=== PATIENT | female | born 1930 | race Caucasian/White ===

== ENCOUNTER 2018-06-29 07:24 | Emergency (ER) | payer OTHER ==
[~2018-06-29] VITALS: Ht 154.9 cm; Wt 65.8 kg
[~2018-06-29 07:24] MED LIST: ADVAIR 250-501 EACH INH; ALENDRONATE SOD70 M2 PO; CALTRATE 600 +1 EACH PO; CIPRO500 M1 PO; COMBIGAN EYE DRO5 ML; COZAAR25 M1 PO; FLAGYL500 MG PO; FLUOROMETHOLONE5 ML OD; LISINOPRIL20 M1 PO; METAMUCIL660 GM PO; PREDNISONE1 MG PO; VITAMIN D2000 UNI1 PO
--- NOTE | 2018-06-29 08:19 | RADIOLOGY REPORT ---
EXAMINATION: XR KNEE, RIGHT CLINICAL INFORMATION: Pain swelling evaluate for fracture. COMPARISON: Prior x-ray July 2017 TECHNIQUE: Four views of the right knee. FINDINGS: There is slight soft tissue prominence anterior to the patellar tendon. There is no fracture. There is no joint effusion. There is no degenerative change. The bones are normal. IMPRESSION: Slightly prominent soft tissue prominence anterior to the patellar tendon may reflect a soft tissue contusion although overall nonspecific.
--- NOTE | 2018-06-29 08:24 | ED MVC/FALL/TRAUMA COMPLAINT ---
History of Present Illness General Chief Complaint: Laceration Procedure Stated Complaint: SLIPPED & FELL, LAC TO L LEG Source: patient Exam Limitations: no limitations Allergies Coded Allergies: Penicillins (Severe, RASH AND THROAT SWELLING 06/29/18) amlodipine (UNKNOWN PER PT CANT REMEMBER 06/29/18) Reconcile Medications Alendronate Sodium 70 MG TABLET 1 TAB PO QSUN BONES (Reported) in the morning, at least 30 minutes before the first food, beverage, or medication of the day Calcium Carbonate/Vitamin D3 (Caltrate 600 + D Tablet) (Unknown Strength) TABLET (Unknown Dose) PO DAILY SUPPLEMENT (Reported) Cholecalciferol (Vitamin D3) (Vitamin D) 2,000 UNIT TABLET 1 TAB PO DAILY SUPPLEMENT (Reported) Fluorometholone 0.1 % DROPS.SUSP 1 DROP OD QPM RIGHT EYE (Reported) Losartan Potassium (Cozaar) 25 MG TABLET 1 TAB PO DAILY BP (Reported) Prednisone 1 MG TABLET 2 MG PO DAILY STEROID (Reported) Psyllium Husk (Metamucil) (Unknown Strength) POWDER (Unknown Dose) PO DAILY GI (Reported) Triage Note: PT TO ED FOR C/C OF SKIN TEAR TO L CARBONE AREA S/P MECHANICAL TRIP AND FALL OVER DOG TOY. NO ACTIVE BLEEDING IN TRIAGE. -BLOOD THINNERS. ALSO COMPLAINS OF R KNEE PAIN WITH SOME MINOR SWELLING NOTED. AMBULATORY IN TRIAGE. Triage Nurses Notes Reviewed? yes Onset: Abrupt Duration: day(s):, constant, continues in ED Timing: single episode today Severity: mild, moderate Severity Numbers: 5 Injuries/Fall Location: lower extremity Method of Injury: fall Loss of Consciousness: no loss of consciousness No Modifying Factors: none LMP (ages 10-50): post menopausal HPI: 87-year-old female history of hypertension, PMR, asthma, GERD presents for evaluation after a fall. Patient reports she tripped over a dog toy hitting her right knee and and left carbone on the ground. She suffered a small skin tear to the left carbone. She reports pain bruising and swelling to the right knee. There is no head strike or loss of consciousness no blood thinners. Patient has been able to walk. She denies any other injuries. (Maninder LINCOLN,Delvis) Vital Signs & Intake/Output Vital Signs & Intake/Output ED Intake and Output 06/30 0000 06/29 1200 Intake Total Output Total Balance Patient 145 lb Weight Weight Reported by Patient Measurement Method (Catalina CHAPARRO,[place]) Past History Travel History Traveled to [place] past 21 day No Medical History Any Pertinent Medical History? see below for history Neurological: NONE EENT: NONE Cardiovascular: hypertension Respiratory: asthma Gastrointestinal: GERD Hepatic: NONE Musculoskeletal: osteoporosis, PMR History of MRSA: No History of VRE: No History of CDIFF: No Surgical History Surgical History: appendectomy, hysterectomy Psychosocial History Who do you live with Spouse Services at Home None What is your primary language Maltese Tobacco Use: Quit >30 days ago ETOH Use: occasional use Illicit Drug Use: denies illicit drug use Family History Family History, If Any: MOTHER (HTN). Hx Contributory? No (Delvis Hu) Review of Systems Review of Systems Constitutional: Reports: no symptoms. Eyes: Reports: no symptoms. Ears, Nose, Throat, Mouth: Reports: no symptoms. Respiratory: Reports: no symptoms. Cardiovascular: Reports: no symptoms. Gastrointestinal/Abdominal: Reports: no symptoms. Genitourinary: Reports: no symptoms. Musculoskeletal: Reports: joint pain, joint swelling. Skin: Reports: see HPI (SKIN TEAR). Neurological/Psychological: Reports: no symptoms. All Other Systems: Reviewed and Negative (Delvis Hu) Physical Exam Physical Exam General Appearance: well developed/nourished, no apparent distress, alert, awake Head: atraumatic, normal appearance Eyes: Bilateral: normal appearance, EOMI. Ears, Nose, Throat, Mouth: hearing grossly normal Neck: normal inspection, supple, full range of motion, no midline tenderness Respiratory: normal breath sounds, chest non-tender, no respiratory distress, lungs clear Cardiovascular: regular rate/rhythm, normal peripheral pulses Peripheral Pulses: 2+ tibialis posterior (R), 2+ tibialis posterior (L), 2+ dorsalis pedis (R), 2+ dorsalis pedis (L) Gastrointestinal: soft, non-tender Back: normal inspection, normal range of motion, no vertebral tenderness Extremities: normal range of motion, THERE IS SWELLING AND BRUSING TO THE ANTERIOR RT KNEE. FULL ROM INTACT. THERE IS A SUPERFICAL SKIN TEAR TO THE LEFT ANTERIOR LOWER LEG. NO SQ TISSUE IS VISIBLE. NO ACTIVE BLEEDING. NO OTHER JOINT SWELLING OR PAIN Neurologic/Psych: no motor/sensory deficits, awake, alert, oriented x 3, normal gait Skin: intact, normal color, warm/dry Core Measures ACS in differential dx? No CVA/TIA Diagnosis No Sepsis Present: No Sepsis Focused Exam Completed? No (Delvis Hu) Progress Differential Diagnosis: abd injury, C/T/L spine injury, pelvis injury, FRACTURE CONTUSION SPRAIN Plan of Care: Patient is here for evaluation after a fall. She had her right knee and left anterior carbone on the ground. There is no head strike no other signs of trauma. She is able to walk. She has a skin tear to the left lower leg. This was approximated using Steri-Strips. A sterile dressing was applied discussed wound care procedures. An Amadeo wrap was applied to the right knee. X-rays are negative for fracture. Rest ice elevation compression. Tylenol for pain. Discussed return precautions. Follow-up with the primary care doctor. Patient agrees the plan case discussed with Dr. Arnold he agrees. Diagnostic Imaging: Viewed by Me: Radiology Read. Discussed w/RAD: Radiology Read. Radiology Impression: PATIENT: DANGELO SMITH PRESENT AGE: 87 PATIENT ACCOUNT NO: [id number] : 31 LOCATION: [facility] ORDERING PHYSICIAN: Delvis LINCOLN SERVICE DATE: 06/29/18 EXAM TYPE: RAD - XRY- KNEE, RIGHT EXAMINATION: XR KNEE, RIGHT CLINICAL INFORMATION: Pain swelling evaluate for fracture. COMPARISON: Prior x-ray July 2017 TECHNIQUE: Four views of the right knee. FINDINGS: There is slight soft tissue prominence anterior to the patellar tendon. There is no fracture. There is no joint effusion. There is no degenerative change. The bones are normal. IMPRESSION: Slightly prominent soft tissue prominence anterior to the patellar tendon may reflect a soft tissue contusion although overall nonspecific. DICTATED BY: Martinez Vang MD DATE/TIME DICTATED:06/29/18811 CABINET MAKER: VICKIE DATE/TIME TRANSCRIBED:06/29/18811 CONFIDENTIAL, DO NOT COPY WITHOUT APPROPRIATE AUTHORIZATION. <Electronically signed in Other Vendor System> SIGNED BY: Martinez Vang MD 06/29/18818 Hand-Off Endorsed To: Kb Yanes MD (Delvis Hu) Departure Departure Disposition: HOME OR SELF CARE Condition: Stable Clinical Impression Primary Impression: Fall Qualifiers: Encounter type: initial encounter Qualified Code: W19.XXXA - Unspecified fall, initial encounter Secondary Impressions: Skin tear Referrals: Thomas CHAPARRO,Linda (PCP/Family) Additional Instructions: Rest, keep your knee elevated, wear Amadeo wrap and apply ice 15-20 minutes every few hours. Use Tylenol 650 mg every 6 hours as needed for pain. Change dressing on the skin tear once a day. The Steri-Strips will come off on the road in a few days. Look out for signs of infection like redness swelling discharge or pain. Make a follow-up with your primary care doctor for recheck in a few days return with any concerns. Departure Forms: Customer Survey General Discharge Information (Delvis Hu) PA/[employer] Co-Sign Statement Statement: ED Attending supervision documentation- [X] I saw and evaluated the patient. I have also reviewed all the pertinent lab results and diagnostic results. I agree with the findings and the plan of care as documented in the PA's/[employer] HEL[employer]'s documentation. Patient presents for evaluation of injuries status post fall. Patient has a minor abrasion and mild effusion of the right knee. She also suffered a skin tear to the anterior left leg. [] I have reviewed the ED Record and agree with the PA's/[employer] HEL[employer]'s documentation. [] Additions or exceptions (if any) to the PAs/[employer] HELPER's note and plan are summarized below: [] (Catalina CHAPARRO,[place])
[2018-06-29 08:54] VITALS: BP 140/80
== END 2018-06-29 08:54 ==
LOC: ERH 07:24
DX: S81.812A Laceration without foreign body, left lower leg, initial encounter (principal); S80.01XA Contusion of right knee, initial encounter; I10 Essential (primary) hypertension; J45.909 Unspecified asthma, uncomplicated; Z87.891 Personal history of nicotine dependence; W18.09XA Striking against other object with subsequent fall, initial encounter; Y93.01 Activity, walking, marching and hiking
CPT/HCPCS: 73560-RT; 90471; 90714